=== PATIENT | female | born 1995 | race American Indian/Alaskan Native ===

== ENCOUNTER 2021-08-11 12:06 | Emergency (ER) | payer OTHER, SELFPAY ==
[2021-08-11 12:12] VITALS: BP 132/78; PULSE 102; RESP 15; TEMP 36.1; O2SAT 99; BMI 21.6
[2021-08-11 14:39] VITALS: BP 122/60; PULSE 96; O2SAT 97
--- NOTE | 2021-08-11 14:43 | DI.RAD.S_ITS ---
PROCEDURE: XR HIP W PEL IF DONE LT 2V INDICATIONS: hip pain TECHNIQUE: AP pelvis with lateral view(s) of the left hip(s). COMPARISON: None. FINDINGS: Bones: No fractures or dislocations. Pelvic ring appears intact. No suspicious bony lesions. Soft tissues: The visualized bowel gas pattern is normal. No suspicious soft tissue calcifications. An IUD is projected over the mid pelvis. IMPRESSION: No acute radiographic findings. Dictated by: Kasie Tay M.D. on 08/11/2021 at 15:16 Approved by: Kasie Tay M.D. on 08/11/2021 at 15:17
--- NOTE | 2021-08-11 14:44 | DI.RAD.S_ITS ---
PROCEDURE: XR LUMBAR SPINE 2-3V INDICATIONS: back pain TECHNIQUE: 3 views of the lumbar spine were acquired. COMPARISON: None. FINDINGS: Bones: 5 [id number] vertebrae are present. There is normal bony alignment. No vertebral body compression fractures. No suspicious bony lesions. Soft tissues: Overlying bowel gas pattern is normal. No suspicious soft tissue calcifications. An IUD is projected over the mid pelvis. IMPRESSION: No radiographic abnormalities. Dictated by: Kasie Tay M.D. on 08/11/2021 at 15:15 Approved by: Kasie Tay M.D. on 08/11/2021 at 15:16
--- NOTE | 2021-08-11 14:44 | ED.BACK ---
HPI - Back Pain/Injury <Jean Marie Robledo PA-C - Last Filed: 08/11/21 15:37> General Chief Complaint: Back Pain/Injury Stated Complaint: LEFT SIDE SCIATICA GROIN PELVIC AREA PAIN Time Seen by Provider: 08/11/21 14:38 Source: patient History of Present Illness HPI Narrative: Patient is a 26-year-old female who presents to the ED complaining of low back pain with pain radiating down her left leg that started approximately 1 week ago. She is also reporting some left hip pain that radiates into her left groin that started to worsen over the last couple of days. She denies any recent trauma or previous history. She has a history of psoriatic arthritis of which she has received steroid treatment in the past. Related Data Previous Rx's Medication Instructions Recorded ibuprofen 800 mg tablet 800 mg PO Q8H PRN #21 tab 08/11/21 methocarbamol 750 mg tablet 750 mg PO Q8H #21 tab 08/11/21 methylprednisolone 4 mg tablets in See Rx Instructions .ROUTE 08/11/21 a dose pack (Medrol (Aj)) .COMPLEX #21 ea Allergies Allergy/AdvReac Type Severity Reaction Status Date / Time naproxen AdvReac Intermediate Gastrointestinal Verified 08/11/21 12:17 Upset Review of Systems <Jean Marie Robledo PA-C - Last Filed: 08/11/21 15:37> Review of Systems ROS Unobtainable: All systems reviewed & are unremarkable except as noted in HPI and below Constitutional Constitutional: Denies chills, Denies fatigue, Denies fever(s), Denies frequent falls, Denies lethargy and Denies weakness Eyes Eyes: Denies change in vision, Denies eye discharge, Denies irritation and Denies loss of vision ENT Ears, Nose, Mouth, and Throat: Denies change in voice, Denies dizziness, Denies neck pain, Denies sore throat and Denies throat swelling Cardiovascular Cardiovascular: Denies chest pain, Denies irregular heart rhythm, Denies lightheadedness, Denies palpitations, Denies dyspnea, Denies dyspnea on exertion and Denies orthopnea Respiratory Respiratory: Denies cough, Denies dyspnea, Denies dyspnea on exertion and Denies wheezing Gastrointestinal Gastrointestinal: Denies abdominal pain, Denies change in bowel habits, Denies diarrhea, Denies nausea and Denies vomiting Genitourinary Genitourinary: Denies hematuria, Denies flank pain, Denies urinary incontinence and Denies urinary urgency Musculoskeletal Musculoskeletal: Reports back pain, Reports arthralgias, Denies muscle weakness, Denies neck pain, Denies numbness and Denies tingling Integumentary/Breasts Skin/Breast: Denies pruritus, Denies erythema, Denies rash and Denies wounds Neurologic Neurologic: Denies behavioral changes, Denies confusion, Denies dizziness, Denies frequent falls, Denies loss of vision, Denies numbness, Denies tingling and Denies weakness Psychiatric Psychiatric: Denies anxiety, Denies behavioral changes, Denies confusion, Denies depression, Denies homicidal ideation and Denies suicidal ideation Endocrine Endocrine: Denies fatigue, Denies flushing and Denies palpitations Hematologic/Lymphatic Hematologic/Lymphatic: Denies easy bruising Allergic/Immunologic Allergic/Immunologic: Denies urticaria, Denies throat swelling and Denies wheezing Patient History <Jean Marie Robledo PA-C - Last Filed: 08/11/21 15:37> Social History Smoking Status: Never smoker Smoking Status: Never smoker alcohol intake frequency: 0-2 drinks per day Substance Use Type: marijuana Exam <Jean Marie Robledo PA-C - Last Filed: 08/11/21 15:37> Initial Vital Signs Initial Vital Signs: Vital Signs Temperature 97.0 F L 08/11/21 12:12 Pulse Rate 102 H 08/11/21 12:12 Respiratory Rate 15 08/11/21 12:12 Blood Pressure 132/78 08/11/21 12:12 Pulse Oximetry 99 08/11/21 12:12 Const General: cooperative, healthy appearing and in distress Back/Spine/Pelvis Back: normal to inspection Thoracic/Lumbar Spine: thoracic and lumbar spine normal to inspection and straight leg raise negative bilaterally Extrem Left lower extremity: hip/thigh Details: abnormal ROM Details: pain with passive ROM Details: with internal rotation and with external rotation <Marcela Hurt DO - Last Filed: 08/12/21 10:16> Initial Vital Signs Initial Vital Signs: Vital Signs Temperature 97.0 F L 08/11/21 12:12 Pulse Rate 102 H 08/11/21 12:12 Respiratory Rate 15 08/11/21 12:12 Blood Pressure 132/78 08/11/21 12:12 Pulse Oximetry 99 08/11/21 12:12 Course <Jean Marie Robledo PA-C - Last Filed: 08/11/21 15:37> Orders Ordered: Discontinued Medications Dexamethasone (Dexamethasone 4 Mg/Ml Vial) 4 mg INJ INTRA-OP ONE Stop: 08/11/21 15:50 Last Admin: 08/11/21 15:57 Dose: Not Given Documented by: RAVEN Dexamethasone (Dexamethasone 4 Mg/Ml Vial) 4 mg IM NOW ONE Stop: 08/11/21 15:56 Last Admin: 08/11/21 16:03 Dose: 4 mg Documented by: RAVEN Vital Signs Vital signs: Vital Signs - 8 hr 08/11/21 12:12 08/11/21 14:39 Temperature 97.0 F L Pulse Rate 102 H 96 H Respiratory Rate 15 Blood Pressure 132/78 122/60 Pulse Oximetry 99 97 <Marcela Hurt DO - Last Filed: 08/12/21 10:16> Orders Ordered: Discontinued Medications Dexamethasone (Dexamethasone 4 Mg/Ml Vial) 4 mg INJ INTRA-OP ONE Stop: 08/11/21 15:50 Last Admin: 08/11/21 15:57 Dose: Not Given Documented by: RAVEN Dexamethasone (Dexamethasone 4 Mg/Ml Vial) 4 mg IM NOW ONE Stop: 08/11/21 15:56 Last Admin: 08/11/21 16:03 Dose: 4 mg Documented by: RAVEN Vital Signs Vital signs: Vital Signs - 8 hr 08/11/21 12:12 08/11/21 14:39 Temperature 97.0 F L Pulse Rate 102 H 96 H Respiratory Rate 15 Blood Pressure 132/78 122/60 Pulse Oximetry 99 97 MDM - Back Pain/Injury <Jean Marie Robledo PA-C - Last Filed: 08/11/21 15:37> Differential Diagnosis Differential diagnosis: Likely sciatica and strain of lumbar region Lab Data Labs: Lab Results 08/11/21 Range/Units 16:02 Urine RBC 1-5/hpf (0-5/HPF) Urine WBC 1-5/hpf (0-5/HPF) Ur Squamous Epith Cells 5-10 /hpf H (0-5/HPF) Amorphous Sediment 1+ Urine Bacteria Occasional (0-1) (None) Urine Mucus 1+ H (Negative) Ur Culture Indicated? Specimen cultured Point of Care Testing Test Results Negative Urine Dip Bedside Urine Glucose Negative Bedside Urine Bilirubin - Negative Bedside Urine Ketone - Negative Urine Specific [place] 1.015 Bedside Urine Occult Blood +++ Bedside Urine pH 6.0 Bedside Urine Protein +/- 15 Bedside Urine Urobilinogen - Negative Bedside Urine Nitrite - Negative Bedside Urine Leukocytes - Negative Esterase Imaging Data Lumbar X-Ray: Radiologist's Impression: PROCEDURE:? XR LUMBAR SPINE 2-3V ? INDICATIONS:? back pain ? TECHNIQUE:? 3 views of the lumbar spine were acquired.? ? COMPARISON:? None. ? FINDINGS:? ? Bones:? 5 [id number] vertebrae are present.? There is normal bony alignment.? No vertebral body compression fractures.? No suspicious bony lesions.? ? Soft tissues:? Overlying bowel gas pattern is normal.? No suspicious soft tissue calcifications.? An IUD is projected over the mid pelvis. ? ? IMPRESSION:? No radiographic abnormalities. ? ? Dictated by: Kasie Tay M.D. on 08/11/2021 at 15:15 ? ? Approved by: Kasie Tay M.D. on 08/11/2021 at 15:16 Hip X-Ray: Radiologist's Impression: PROCEDURE:? XR HIP W PEL IF DONE LT 2V ? INDICATIONS:? hip pain ? TECHNIQUE:? AP pelvis with lateral view(s) of the left hip(s).? ? COMPARISON:? None. ? FINDINGS:? ? Bones:? No fractures or dislocations.? Pelvic ring appears intact.? No suspicious bony lesions.? ? Soft tissues:? The visualized bowel gas pattern is normal.? No suspicious soft tissue calcifications.? An IUD is projected over the mid pelvis. ? ? IMPRESSION:? No acute radiographic findings. ? Dictated by: Kasie Tay M.D. on 08/11/2021 at 15:16 ? ? Approved by: Kasie Tay M.D. on 08/11/2021 at 15:17?? [facility] Narrative Medical decision making narrative: Patient was evaluated today for low back pain with pain radiating down the left leg and into the left hip. X-rays of the lower back and left hip were done did not show any evidence of any abnormalities. I spoke with the patient about prescriptions for muscle relaxers anti-inflammatories and steroids. She was agreeable with the treatment plan prescriptions will be sent to her pharmacy and patient will be discharged home. If the pain continues she should follow up with a back specialist for further evaluation. <Marcela Hurt DO - Last Filed: 08/12/21 10:16> Lab Data Labs: Lab Results 08/11/21 Range/Units 16:02 Urine RBC 1-5/hpf (0-5/HPF) Urine WBC 1-5/hpf (0-5/HPF) Ur Squamous Epith Cells 5-10 /hpf H (0-5/HPF) Amorphous Sediment 1+ Urine Bacteria Occasional (0-1) (None) Urine Mucus 1+ H (Negative) Ur Culture Indicated? Specimen cultured Point of Care Testing Test Results Negative Urine Dip Bedside Urine Glucose Negative Bedside Urine Bilirubin - Negative Bedside Urine Ketone - Negative Urine Specific [place] 1.015 Bedside Urine Occult Blood +++ Bedside Urine pH 6.0 Bedside Urine Protein +/- 15 Bedside Urine Urobilinogen - Negative Bedside Urine Nitrite - Negative Bedside Urine Leukocytes - Negative Esterase Discharge Plan Departure Patient Disposition: Home Clinical Impression: Sciatica, Strain of lumbar region Instructions: DI for Back Pain With Sciatica Activity Restrictions/Additional Instructions: You should limit your activity for the next few days. No heavy lifting or frequent bending or stooping. The prescriptions for the anti-inflammatory the muscle relaxer and steroids were sent over to [facility]. It is my hope that the muscle relaxer will not cause you to feel sedated were you can continue to take that every 8 hours along side the ibuprofen. Take the steroid pack as directed and if no improvement in your symptoms over a week you should follow-up with your PCP or back specialist for further evaluation to include an MRI. Prescriptions: New ibuprofen 800 mg tablet 800 mg PO Q8H PRN (Reason: pain) Qty: 21 0RF methocarbamol 750 mg tablet 750 mg PO Q8H Qty: 21 0RF methylprednisolone [Medrol (Aj)] 4 mg tablets,dose pack See Rx Instructions .ROUTE .COMPLEX Qty: 21 0RF Rx Instructions: orally per package directions Stand Alone Forms: Work Release Note <Marcela Hurt DO - Last Filed: 08/12/21 10:16> Cosign ED Attending Cosignature Attestation: I was immediately available in the department for consultation. Documentation has been reviewed. I agree with assessment and plan.
[2021-08-11] MEDS: DEXAMETHASONE 4 MG/ML VIAL IM (16:03)
[2021-08-11 16:09] VITALS: BP 123/61; PULSE 98; RESP 16; O2SAT 99
[2021-08-11 16:17] LABS: RBC Urine 1-5/HPF (0-5/HPF); Squamous Epithelial Cell Urine 5-10 /HPF (0-5/HPF); WBC Urine 1-5/HPF (0-5/HPF)
[2021-08-11 16:18] LABS: Amorphous Sediment Urine 1+; Bacteria Urine Occasional (0-1); Culture Indicated Urine Specimen Cultured; Mucus Urine 1+ (Negative)
== END 2021-08-11 16:14 | disposition home or self-care (01) ==
PROVIDERS: Emergency Provider Physician Assistant
DX: M54.42 Lumbago with sciatica, left side (principal); S39.012A Strain of muscle, fascia and tendon of lower back, initial encounter; X58.XXXA Exposure to other specified factors, initial encounter
CPT/HCPCS: 72100; 73502; 81003; 81015; 81025; 87086; 96372; 99284; J1100

== ENCOUNTER → 2021-09-28 13:44 | Outpatient (CLI) | payer OTHER, SELFPAY ==
--- NOTE | 2021-09-28 13:45 | DI.MRI.S_ITS ---
PROCEDURE: MR LUMBAR SPINE WO CON INDICATIONS: lumbar radiculopathy TECHNIQUE: Noncontrast sagittal T1 spin echo and T2 fast echo, sagittal STIR, and T2 fast spin echo through the lumbar spine. In cases with scoliosis, additional coronal T2 fast spin echo may be performed. COMPARISON: [facility], CR, XR LUMBAR SPINE 2-3V, 08/11/2021, 14:35. FINDINGS: Image quality: Excellent. Alignment and Curvature: 5 lumbar type vertebral bodies are present by plain film. There is loss of normal lumbar lordosis. Alignment is otherwise normal. Bone Marrow: Marrow is of normal overall signal. No acute vertebral body compression fractures. Spinal Cord: Conus medullaris terminates at the L1-L2 disc space level. Visualized cord demonstrates normal signal and size. Paraspinous Soft Tissues: No paravertebral masses. T12-L1: Normal appearance. L1-L2: Normal appearance. L2-L3: Normal appearance. L3-L4: Normal appearance. L4-L5: Normal appearance. L5-S1: Normal appearance. IMPRESSION: 1. Loss of normal lumbar lordosis, suggestive of muscle spasm. 2. No significant canal, or foraminal stenosis. No neural impingement. Dictated by: Jada Martínez M.D. on 09/28/2021 at 14:38 Approved by: Jada Martínez M.D. on 09/28/2021 at 14:39
== END ==
PROVIDERS: Referring Provider Physical Medicine & Rehabilitation; Visit Provider Physical Medicine & Rehabilitation
DX: M54.17 Radiculopathy, lumbosacral region (principal)
CPT/HCPCS: 72148

== ENCOUNTER 2021-09-30 09:46 | Emergency (ER) | payer OTHER, SELFPAY ==
[2021-09-30] VITALS (11 sets, daily range): BP systolic 109–128; BP diastolic 59–75; PULSE 80–109; RESP 16–22; TEMP 36.7–36.8; O2SAT 92–100; BMI 18.9
[2021-09-30 10:21] LABS: COVID19 -Nasal RAPID Negative (Negative)
[2021-09-30 10:51] LABS: Hemoglobin 8.1 g/dL (12.0-16.0); White Blood Cell Count 7.1 X10^3/uL (4.5-11.0)
[2021-09-30 10:54] LABS: Hematocrit 25.2 % (36-46); Mean Corpuscular Hemoglobin 22.7 PG (26-34); Mean Corpuscular Volume 71.1 fL (80-100); Red Blood Cell Count 3.55 X10^6/uL (4.0-5.2); Red Cell Distribution Width 18.9 % (11.6-14.8)
[2021-09-30 10:56] LABS: Alanine Aminotransferase 19 IU/L (<35); Albumin 3.4 g/dL (3.5-5.0); Albumin Globulin Ratio 0.5 (1.0-2.8); Alkaline Phosphatase 109 U/L (38-126); Aspartate Aminotransferase 21 IU/L (14-36); BUN Creatinine Ratio 14.9 (6-22); Bilirubin Total 0.3 mg/dL (0.2-1.3); Blood Urea Nitrogen 7 mg/dL (7-17); Calcium 8.6 mg/dL (8.4-10.2); Carbon Dioxide 29 mmol/L (22-32); Chloride 102 mmol/L (98-107); Estimated Glomerular Filt Rate > 60 mL/min (>60); Globulin 6.4 g/dL (1.7-4.1); Glucose 118 mg/dL (70-100); HEMOLYSIS < 15 (0-50); Potassium 3.9 mmol/L (3.4-5.1); Sodium 138 mmol/L (137-145)
[2021-09-30 10:57] LABS: Add Manual Diff / Slide Review YES; Platelet Count 800 X10^3/uL (150-400); Total Protein 9.8 g/dL (6.3-8.2)
[2021-09-30 11:21] LABS: Neutrophils Absolute Manual 3834 /uL (3000-5900); Total Cells Counted 100
[2021-09-30 11:23] LABS: Anisocytosis 1+; Hypochromasia 1+; Microcytosis 1+; Platelet Estimate Increased on smear
[2021-09-30] MEDS: ONDANSETRON 4 MG/2 ML INJ IV (12:50)
[2021-09-30] MEDS: SODIUM CHLORIDE 0.9% 1,000 ML 1000 ML IV (12:50)
[2021-09-30 12:52] LABS: Lactate (Lactic Acid) 1.2 mmol/L (0.7-2.1)
[2021-09-30 12:56] LABS: Appearance Urine UA CLEAR; Bilirubin Urine UA NEGATIVE (NEGATIVE); Color Urine UA YELLOW; Glucose Urine UA NEGATIVE (Negative); Ketones Urine UA NEGATIVE (NEGATIVE); Leukocyte Esterase Urine UA 1+ (NEGATIVE); Nitrite Urine UA NEGATIVE (Negative); Occult Blood Urine UA 3+ (Negative); Protein Urine UA NEGATIVE (Negative); Urobilinogen Urine UA 0.2 E.U./dL (0.2)
[2021-09-30 12:57] LABS: pH Urine UA 6.5 (4.5-8.0)
[2021-09-30 13:00] LABS: Bacteria Urine None Seen; Culture Indicated Urine Specimen Cultured; RBC Urine 10-30/HPF (0-5/HPF); Squamous Epithelial Cell Urine 1-5 /HPF (0-5/HPF); WBC Urine 5-10/HPF (0-5/HPF)
[2021-09-30 13:08] LABS: Procalcitonin 0.14 ng/mL (<0.5)
--- NOTE | 2021-09-30 13:24 | ED_ITS ---
HPI - Sepsis <JACEK Pacheco - Last Filed: 09/30/21 17:05> General Chief Complaint: Weakness Mode of arrival: Wheelchair Source: patient Limitations: no limitations Evaluation Sepsis Screen: No Definite Risk Sepsis Infection Criteria Present: None Narrative: This is a 26-year-old female with a history of psoriatic arthritis and has pr esented to the emergency department and walk-in clinic for lumbar pain over the last 2 months which has not been getting much better after 2 courses of steroids, muscle relaxers, anti-inflammatories. Patient states that she used to take since he a an injectable medicine for her psoriatic arthritis once per month and has been off of this for a few months. She states that she is from [place], her executive chairman in [place] was the prescriber for this, she has not set up primary care yet [facility] she will [facility] going. She does not have a executive chairman yet. She states that yesterday at work her co-worker thought that she was pale and she felt lightheaded so she drank some water which she states made her feel better. She states that she has had ongoing low back pain with sciatica down her left side, she has been seen in the emergency department and at the walk-in clinic for this. She states she had an MRI 2 days ago for her lumbar. She is pending a primary care provider [facility], states she called today but they told her to go to the emergency department. Nausea vomiting, shortness of breath, fever or chills, no weakness. She states that she has had 2 courses of steroids this month which have improved her pain but now her pain is worse than it has ever been. She denies any incontinence. Review of Systems <JACEK Pacheco - Last Filed: 09/30/21 17:05> Review of Systems Narrative: General: Endorses chills, malaise, sweats, fatigue Head/Neck: denies headache, neck pain, dizziness Eyes: denies visual changes, eye pain Cardio: denies chest pain, palpitations, edema Respiratory: denies dyspnea, cough, orthopnea GI: denies abdominal pain, nausea, vomiting, or diarrhea : denies dysuria, hematuria, urinary retention, frequency or incontinence MSK: denies joint pain, muscle weakness, endorses low back pain which is significant, Skin: denies rash, itching, skin lesions or other Neuro: denies numbness, tingling Patient History <JACEK Pacheco - Last Filed: 09/30/21 17:05> Medical History Lumbago with sciatica Lumbosacral radiculopathy at L5 Social History Smoking Status: Never smoker Smoking Status: Never smoker alcohol intake frequency: 0-2 drinks per day Substance Use Type: marijuana Exam <JACEK Pacheco - Last Filed: 09/30/21 17:05> Narrative Exam Narrative: Independently reviewed vitals signs and nursing notes. General: cooperative, comfortable, in no acute distress, well developed and well groomed Head: atraumatic, symmetrical facial expressions Neck: supple, atraumatic, without lymphadenopathy. Eyes: pupils equal round and reactive, EOMI, conjunctiva normal Nose: nares patent, no rhinorrhea Mouth/Throat: moist mucus membranes Cardiovascular: regular rate and rhythm, no peripheral edema, warm extremities Respiratory: normal effort, able to speak in complete sentences, no audible wheezing, stridor, or rales. No retractions or tachypnea. GI: abdomen soft, nontender to palpation, nondistended, no masses, no exquisite tenderness with exam, without guarding or rebound. No CVA tenderness, Box Builder: Vaginal discharge is clear with small brown spots likely from menses, no thick white discharge, or lymphadenopathy. MSK: moves all extremities, ambulatory w/steady gait, neurovascularly intact, no weakness Skin: brisk capillary refill, no rash, no erythema Neuro: normal speech and cognition, A&O x3, normal tone Psych: mental status is grossly normal, congruent mood, normal affect, pleasant and cooperative Initial Vital Signs Initial Vital Signs: Vital Signs Temperature 98.0 F 09/30/21 09:55 Pulse Rate 109 H 09/30/21 09:55 Respiratory Rate 20 09/30/21 09:55 Blood Pressure 109/68 09/30/21 09:55 Pulse Oximetry 99 09/30/21 09:55 <Marcela Hurt DO - Last Filed: 10/01/21 07:56> Initial Vital Signs Initial Vital Signs: Vital Signs Temperature 98.0 F 09/30/21 09:55 Pulse Rate 109 H 09/30/21 09:55 Respiratory Rate 20 09/30/21 09:55 Blood Pressure 109/68 09/30/21 09:55 Pulse Oximetry 99 09/30/21 09:55 Course <JACEK Pacheco - Last Filed: 09/30/21 17:05> Orders Ordered: Discontinued Medications Cyclobenzaprine HCl (Cyclobenzaprine 10 Mg Tablet) 10 mg PO NOW ONE Stop: 09/30/21 14:24 Last Admin: 09/30/21 14:33 Dose: 10 mg Documented by: RAVEN Sodium Chloride (Normal Saline 0.9%) 1,000 mls @ 1,000 mls/hr IV BOLUS ONE Stop: 09/30/21 13:35 Last Infusion: 09/30/21 13:53 Dose: 0 mls/hr Documented by: Admin: 09/30/21 12:50 Dose: 1,000 mls/hr Documented by: RAYSHAWN Ketorolac Tromethamine (Ketorolac 30 Mg/Ml Vial) 15 mg IV NOW ONE Stop: 09/30/21 14:21 Last Admin: 09/30/21 14:33 Dose: 15 mg Documented by: RAVEN Ondansetron HCl (Ondansetron 4 Mg/2 Ml Inj) 4 mg IV NOW ONE Stop: 09/30/21 12:37 Last Admin: 09/30/21 12:50 Dose: 4 mg Documented by: RAYSHAWN Vital Signs Vital signs: Vital Signs - 8 hr 09/30/21 09:55 09/30/21 11:36 09/30/21 11:37 Temperature 98.0 F Pulse Rate 109 H 96 H 95 H Respiratory Rate 20 22 16 Blood Pressure 109/68 121/75 Pulse Oximetry 99 92 100 09/30/21 12:00 09/30/21 12:42 09/30/21 12:44 Temperature Pulse Rate 86 98 H 92 H Respiratory Rate 17 Blood Pressure 116/59 L 128/66 Pulse Oximetry 99 99 99 09/30/21 13:00 09/30/21 13:26 09/30/21 13:30 Temperature 98.3 F Pulse Rate 85 85 Respiratory Rate 21 22 Blood Pressure 123/59 L 128/68 Pulse Oximetry 98 100 09/30/21 14:00 09/30/21 14:30 Temperature Pulse Rate 80 80 Respiratory Rate 19 20 Blood Pressure 125/64 114/59 L Pulse Oximetry 100 99 <Marcela Hurt, DO - Last Filed: 10/01/21 07:56> Orders Ordered: Discontinued Medications Cyclobenzaprine HCl (Cyclobenzaprine 10 Mg Tablet) 10 mg PO NOW ONE Stop: 09/30/21 14:24 Last Admin: 09/30/21 14:33 Dose: 10 mg Documented by: RAVEN Sodium Chloride (Normal Saline 0.9%) 1,000 mls @ 1,000 mls/hr IV BOLUS ONE Stop: 09/30/21 13:35 Last Infusion: 09/30/21 13:53 Dose: 0 mls/hr Documented by: Admin: 09/30/21 12:50 Dose: 1,000 mls/hr Documented by: RAYSHAWN Ketorolac Tromethamine (Ketorolac 30 Mg/Ml Vial) 15 mg IV NOW ONE Stop: 09/30/21 14:21 Last Admin: 09/30/21 14:33 Dose: 15 mg Documented by: RAVEN Ondansetron HCl (Ondansetron 4 Mg/2 Ml Inj) 4 mg IV NOW ONE Stop: 09/30/21 12:37 Last Admin: 09/30/21 12:50 Dose: 4 mg Documented by: RAYSHAWN Vital Signs Vital signs: Vital Signs - 8 hr 09/30/21 09:55 09/30/21 11:36 09/30/21 11:37 Temperature 98.0 F Pulse Rate 109 H 96 H 95 H Respiratory Rate 20 22 16 Blood Pressure 109/68 121/75 Pulse Oximetry 99 92 100 09/30/21 12:00 09/30/21 12:42 09/30/21 12:44 Temperature Pulse Rate 86 98 H 92 H Respiratory Rate 17 Blood Pressure 116/59 L 128/66 Pulse Oximetry 99 99 99 09/30/21 13:00 09/30/21 13:26 09/30/21 13:30 Temperature 98.3 F Pulse Rate 85 85 Respiratory Rate 21 22 Blood Pressure 123/59 L 128/68 Pulse Oximetry 98 100 09/30/21 14:00 09/30/21 14:30 Temperature Pulse Rate 80 80 Respiratory Rate 19 20 Blood Pressure 125/64 114/59 L Pulse Oximetry 100 99 Sepsis Guideline Criteria <JACEK Pacheco - Last Filed: 09/30/21 17:05> Level 1 - Infection Sepsis Infection Criteria Present: None Treatment Initiated Antibiotics:: IV antimicrobials will be initiated as soon as possible after recognition of sepsis state and within one hour for both sepsis and septic shock. MDM - Sepsis <JACEK Pacheco - Last Filed: 09/30/21 17:05> Lab Data Result diagrams: 09/30/21 10:34 09/30/21 10:34 Labs: Lab Results 09/30/21 09/30/21 09/30/21 Range/Units 09:56 10:34 10:34 WBC 7.1 (4.5-11.0) X10^3/uL RBC 3.55 L (4.0-5.2) X10^6/uL Hgb 8.1 L (12.0-16.0) g/dL Hct 25.2 L (36-46) % MCV 71.1 L (80-100) fL MCH 22.7 L (26-34) PG MCHC 32.0 (30-36) % RDW 18.9 H (11.6-14.8) % Plt Count 800 H (150-400) X10^3/uL Neut % (Auto) Not Reportable Lymph % (Auto) Not Reportable [place] % (Auto) Not Reportable Eos % (Auto) Not Reportable Baso % (Auto) Not Reportable Lymph # (Auto) Not Reportable [place] # (Auto) Not Reportable Baso # (Auto) Not Reportable Total Counted 100 Seg Neutrophils % 54.0 (38-70) % Lymphocytes % (Manual) 35.0 (25-45) % Atypical Lymphs % 3.0 H ( - 0) % Monocytes % (Manual) 7.0 (2-11) % Eosinophils % (Manual) 1.0 L (2-4) % Neutrophils # (Manual) 3834 (3757-2064) /uL Platelet Estimate Increased on smear RBC Morphology See below Hypochromasia 1+ H Anisocytosis 1+ H Microcytosis 1+ H Sodium 138 (137-145) mmol/L Potassium 3.9 (3.4-5.1) mmol/L Chloride 102 (98-107) mmol/L Carbon Dioxide 29 (22-32) mmol/L BUN 7 (7-17) mg/dL Creatinine 0.47 L (0.52-1.04) mg/dL Estimated GFR > 60 (>60) mL/min BUN/Creatinine Ratio 14.9 (6-22) Glucose 118 H (70-100) mg/dL Lactate (0.7-2.1) mmol/L Calcium 8.6 (8.4-10.2) mg/dL Total Bilirubin 0.3 (0.2-1.3) mg/dL AST 21 (14-36) IU/L ALT 19 (<35) IU/L Alkaline Phosphatase 109 (38-126) U/L Total Protein 9.8 H* (6.3-8.2) g/dL Albumin 3.4 L (3.5-5.0) g/dL Globulin 6.4 H (1.7-4.1) g/dL Albumin/Globulin Ratio 0.5 L (1.0-2.8) Procalcitonin (<0.5) ng/mL Urine Color Urine Appearance Urine pH (4.5-8.0) Ur Specific [place] (1.000-1.035) Urine Protein (Negative) Urine Glucose (UA) (Negative) g/dL Urine Ketones (NEGATIVE) Urine Occult Blood (Negative) Urine Nitrate (Negative) Urine Bilirubin (NEGATIVE) Urine Urobilinogen (0.2) E.U./dL Ur Leukocyte Esterase (NEGATIVE) Urine RBC (0-5/HPF) Urine WBC (0-5/HPF) Ur Squamous Epith Cells (0-5/HPF) Urine Bacteria (None) Ur Culture Indicated? Ur Chlamydia DNA (PCR) SARS-CoV-2 (PCR) Negative (Negative) N gonorrhoeae DNA (PCR) 09/30/21 09/30/21 09/30/21 Range/Units 10:39 10:39 12:40 WBC (4.5-11.0) X10^3/uL RBC (4.0-5.2) X10^6/uL Hgb (12.0-16.0) g/dL Hct (36-46) % MCV (80-100) fL MCH (26-34) PG MCHC (30-36) % RDW (11.6-14.8) % Plt Count (150-400) X10^3/uL Neut % (Auto) Lymph % (Auto) [place] % (Auto) Eos % (Auto) Baso % (Auto) Lymph # (Auto) [place] # (Auto) Baso # (Auto) Total Counted Seg Neutrophils % (38-70) % Lymphocytes % (Manual) (25-45) % Atypical Lymphs % ( - 0) % Monocytes % (Manual) (2-11) % Eosinophils % (Manual) (2-4) % Neutrophils # (Manual) (0883-3006) /uL Platelet Estimate RBC Morphology Hypochromasia Anisocytosis Microcytosis Sodium (137-145) mmol/L Potassium (3.4-5.1) mmol/L Chloride (98-107) mmol/L Carbon Dioxide (22-32) mmol/L BUN (7-17) mg/dL Creatinine (0.52-1.04) mg/dL Estimated GFR (>60) mL/min BUN/Creatinine Ratio (6-22) Glucose (70-100) mg/dL Lactate 1.2 (0.7-2.1) mmol/L Calcium (8.4-10.2) mg/dL Total Bilirubin (0.2-1.3) mg/dL AST (14-36) IU/L ALT (<35) IU/L Alkaline Phosphatase (38-126) U/L Total Protein (6.3-8.2) g/dL Albumin (3.5-5.0) g/dL Globulin (1.7-4.1) g/dL Albumin/Globulin Ratio (1.0-2.8) Procalcitonin 0.14 (<0.5) ng/mL Urine Color Yellow Urine Appearance Clear Urine pH 6.5 (4.5-8.0) Ur Specific [place] 1.010 (1.000-1.035) Urine Protein Negative (Negative) Urine Glucose (UA) Negative (Negative) g/dL Urine Ketones Negative (NEGATIVE) Urine Occult Blood 3+ H (Negative) Urine Nitrate Negative (Negative) Urine Bilirubin Negative (NEGATIVE) Urine Urobilinogen 0.2 (0.2) E.U./dL Ur Leukocyte Esterase 1+ H (NEGATIVE) Urine RBC 10-30/hpf H (0-5/HPF) Urine WBC 5-10/hpf H (0-5/HPF) Ur Squamous Epith Cells 1-5 /hpf (0-5/HPF) Urine Bacteria None seen (None) Ur Culture Indicated? Specimen cultured Ur Chlamydia DNA (PCR) SARS-CoV-2 (PCR) (Negative) N gonorrhoeae DNA (PCR) 09/30/21 Range/Units 12:40 WBC (4.5-11.0) X10^3/uL RBC (4.0-5.2) X10^6/uL Hgb (12.0-16.0) g/dL Hct (36-46) % MCV (80-100) fL MCH (26-34) PG MCHC (30-36) % RDW (11.6-14.8) % Plt Count (150-400) X10^3/uL Neut % (Auto) Lymph % (Auto) [place] % (Auto) Eos % (Auto) Baso % (Auto) Lymph # (Auto) [place] # (Auto) Baso # (Auto) Total Counted Seg Neutrophils % (38-70) % Lymphocytes % (Manual) (25-45) % Atypical Lymphs % ( - 0) % Monocytes % (Manual) (2-11) % Eosinophils % (Manual) (2-4) % Neutrophils # (Manual) ([id number]) /uL Platelet Estimate RBC Morphology Hypochromasia Anisocytosis Microcytosis Sodium (137-145) mmol/L Potassium (3.4-5.1) mmol/L Chloride (98-107) mmol/L Carbon Dioxide (22-32) mmol/L BUN (7-17) mg/dL Creatinine (0.52-1.04) mg/dL Estimated GFR (>60) mL/min BUN/Creatinine Ratio (6-22) Glucose (70-100) mg/dL Lactate (0.7-2.1) mmol/L Calcium (8.4-10.2) mg/dL Total Bilirubin (0.2-1.3) mg/dL AST (14-36) IU/L ALT (<35) IU/L Alkaline Phosphatase (38-126) U/L Total Protein (6.3-8.2) g/dL Albumin (3.5-5.0) g/dL Globulin (1.7-4.1) g/dL Albumin/Globulin Ratio (1.0-2.8) Procalcitonin (<0.5) ng/mL Urine Color Urine Appearance Urine pH (4.5-8.0) Ur Specific [place] (1.000-1.035) Urine Protein (Negative) Urine Glucose (UA) (Negative) g/dL Urine Ketones (NEGATIVE) Urine Occult Blood (Negative) Urine Nitrate (Negative) Urine Bilirubin (NEGATIVE) Urine Urobilinogen (0.2) E.U./dL Ur Leukocyte Esterase (NEGATIVE) Urine RBC (0-5/HPF) Urine WBC (0-5/HPF) Ur Squamous Epith Cells (0-5/HPF) Urine Bacteria (None) Ur Culture Indicated? Ur Chlamydia DNA (PCR) Not detected SARS-CoV-2 (PCR) (Negative) N gonorrhoeae DNA (PCR) Not detected Point of Care Testing Glucose POC 136 Imaging Data Lumbar MRI: Radiologist's Impression: PROCEDURE:? MR LUMBAR SPINE WO CON ? INDICATIONS:? lumbar radiculopathy ? TECHNIQUE:? Noncontrast sagittal T1 spin echo and T2 fast echo, sagittal STIR, and T2 fast spin echo through the lumbar spine.? In cases with scoliosis, additional coronal T2 fast spin echo may be performed.? ? COMPARISON:? [facility], CR, XR LUMBAR SPINE 2-3V, 08/11/2021, 14:35. ? FINDINGS:? Image quality:? Excellent.? ? Alignment and Curvature:? 5 lumbar type vertebral bodies are present by plain film.? There is loss of normal lumbar lordosis.? Alignment is otherwise normal. ? Bone Marrow:? Marrow is of normal overall signal.? No acute vertebral body compression fractures.? ? Spinal Cord:? Conus medullaris terminates at the L1-L2 disc space level.? Visualized cord demonstrates normal signal and size.? ? Paraspinous Soft Tissues:? No paravertebral masses.? ? T12-L1:? Normal appearance.? ? L1-L2:? Normal appearance.? ? L2-L3:? Normal appearance.? ? L3-L4:? Normal appearance.? ? L4-L5:? Normal appearance.? ? L5-S1:? Normal appearance.? ? ? IMPRESSION:? 1. Loss of normal lumbar lordosis, suggestive of muscle spasm. 2. No significant canal, or foraminal stenosis.? No neural impingement. ? ? Dictated by: Jada Martínez M.D. on 09/28/2021 at 14:38 ? ? Approved by: Jada Martínez M.D. on 09/28/2021 at 14:39 ? MDM Narrative Medical decision making narrative: This is a 26-year-old female with history of psoriatic arthritis who presents to the emergency department for ongoing low back pain with sciatica on the left, complains of menstrual cramping although she has the IUD that was implanted in 2019 and has not had a menses but has started spotting recently. She denies any chills, fever, abdominal pain or vomiting. She was previously on Cimzia for her psoriatic arthritis but she moved here from [place] a few months ago and has not had this medication for last couple of months. She has completed 2 or 3 steroid bursts for her back pain which have been helpful, has been using muscle relaxers which have also been helpful, does not use naproxen but takes ibuprofen, uses lidocaine patches, and states that tramadol made her feel weird she did not like it. Her MRI from 2 days ago of her lumbar spine shows lordosis suggestive of muscle spasm, no significant canal or foraminal stenosis, no neural impingement. This is most likely a flare of her psoriatic arthritis, she does not currently have a executive chairman. She is encouraged to go back to the [facility] clinic to establish care with primary care there and ask for a referral to Rheumatology for her medication. Patient has an elevated platelet count of 800, no leukocytosis, hemoglobin of 8.1 and hematocrit of 25.2 without priors to compare to, no signs of bleeding. This is most likely anemia of chronic disease and chronic immunosuppression. UA shows leukocyte esterase, red blood cells, white blood cells, pending culture. Patient was given a prescription of Flexeril for muscle spasms, cephalexin for UTI, diclofenac gel and encouraged to stay hydrated, follow up with her primary care provider for a referral to Rheumatology. Multiple etiologies of back pain considered including; Epidural abscess, cauda equina, mass occupying lesion, lumbar fracture, intra-abdominal pathology chronic neuropathic pain and other considered <Marcela Hurt, DO - Last Filed: 10/01/21 07:56> Lab Data Labs: Lab Results 09/30/21 09/30/21 09/30/21 Range/Units 09:56 10:34 10:34 WBC 7.1 (4.5-11.0) X10^3/uL RBC 3.55 L (4.0-5.2) X10^6/uL Hgb 8.1 L (12.0-16.0) g/dL Hct 25.2 L (36-46) % MCV 71.1 L (80-100) fL MCH 22.7 L (26-34) PG MCHC 32.0 (30-36) % RDW 18.9 H (11.6-14.8) % Plt Count 800 H (150-400) X10^3/uL Neut % (Auto) Not Reportable Lymph % (Auto) Not Reportable [place] % (Auto) Not Reportable Eos % (Auto) Not Reportable Baso % (Auto) Not Reportable Lymph # (Auto) Not Reportable [place] # (Auto) Not Reportable Baso # (Auto) Not Reportable Total Counted 100 Seg Neutrophils % 54.0 (38-70) % Lymphocytes % (Manual) 35.0 (25-45) % Atypical Lymphs % 3.0 H ( - 0) % Monocytes % (Manual) 7.0 (2-11) % Eosinophils % (Manual) 1.0 L (2-4) % Neutrophils # (Manual) 3834 (4716-7519) /uL Platelet Estimate Increased on smear RBC Morphology See below Hypochromasia 1+ H Anisocytosis 1+ H Microcytosis 1+ H Sodium 138 (137-145) mmol/L Potassium 3.9 (3.4-5.1) mmol/L Chloride 102 (98-107) mmol/L Carbon Dioxide 29 (22-32) mmol/L BUN 7 (7-17) mg/dL Creatinine 0.47 L (0.52-1.04) mg/dL Estimated GFR > 60 (>60) mL/min BUN/Creatinine Ratio 14.9 (6-22) Glucose 118 H (70-100) mg/dL Lactate (0.7-2.1) mmol/L Calcium 8.6 (8.4-10.2) mg/dL Total Bilirubin 0.3 (0.2-1.3) mg/dL AST 21 (14-36) IU/L ALT 19 (<35) IU/L Alkaline Phosphatase 109 (38-126) U/L Total Protein 9.8 H* (6.3-8.2) g/dL Albumin 3.4 L (3.5-5.0) g/dL Globulin 6.4 H (1.7-4.1) g/dL Albumin/Globulin Ratio 0.5 L (1.0-2.8) Procalcitonin (<0.5) ng/mL Urine Color Urine Appearance Urine pH (4.5-8.0) Ur Specific [place] (1.000-1.035) Urine Protein (Negative) Urine Glucose (UA) (Negative) g/dL Urine Ketones (NEGATIVE) Urine Occult Blood (Negative) Urine Nitrate (Negative) Urine Bilirubin (NEGATIVE) Urine Urobilinogen (0.2) E.U./dL Ur Leukocyte Esterase (NEGATIVE) Urine RBC (0-5/HPF) Urine WBC (0-5/HPF) Ur Squamous Epith Cells (0-5/HPF) Urine Bacteria (None) Ur Culture Indicated? Ur Chlamydia DNA (PCR) SARS-CoV-2 (PCR) Negative (Negative) N gonorrhoeae DNA (PCR) 09/30/21 09/30/21 09/30/21 Range/Units 10:39 10:39 12:40 WBC (4.5-11.0) X10^3/uL RBC (4.0-5.2) X10^6/uL Hgb (12.0-16.0) g/dL Hct (36-46) % MCV (80-100) fL MCH (26-34) PG MCHC (30-36) % RDW (11.6-14.8) % Plt Count (150-400) X10^3/uL Neut % (Auto) Lymph % (Auto) [place] % (Auto) Eos % (Auto) Baso % (Auto) Lymph # (Auto) [place] # (Auto) Baso # (Auto) Total Counted Seg Neutrophils % (38-70) % Lymphocytes % (Manual) (25-45) % Atypical Lymphs % ( - 0) % Monocytes % (Manual) (2-11) % Eosinophils % (Manual) (2-4) % Neutrophils # (Manual) (9340-1641) /uL Platelet Estimate RBC Morphology Hypochromasia Anisocytosis Microcytosis Sodium (137-145) mmol/L Potassium (3.4-5.1) mmol/L Chloride (98-107) mmol/L Carbon Dioxide (22-32) mmol/L BUN (7-17) mg/dL Creatinine (0.52-1.04) mg/dL Estimated GFR (>60) mL/min BUN/Creatinine Ratio (6-22) Glucose (70-100) mg/dL Lactate 1.2 (0.7-2.1) mmol/L Calcium (8.4-10.2) mg/dL Total Bilirubin (0.2-1.3) mg/dL AST (14-36) IU/L ALT (<35) IU/L Alkaline Phosphatase (38-126) U/L Total Protein (6.3-8.2) g/dL Albumin (3.5-5.0) g/dL Globulin (1.7-4.1) g/dL Albumin/Globulin Ratio (1.0-2.8) Procalcitonin 0.14 (<0.5) ng/mL Urine Color Yellow Urine Appearance Clear Urine pH 6.5 (4.5-8.0) Ur Specific [place] 1.010 (1.000-1.035) Urine Protein Negative (Negative) Urine Glucose (UA) Negative (Negative) g/dL Urine Ketones Negative (NEGATIVE) Urine Occult Blood 3+ H (Negative) Urine Nitrate Negative (Negative) Urine Bilirubin Negative (NEGATIVE) Urine Urobilinogen 0.2 (0.2) E.U./dL Ur Leukocyte Esterase 1+ H (NEGATIVE) Urine RBC 10-30/hpf H (0-5/HPF) Urine WBC 5-10/hpf H (0-5/HPF) Ur Squamous Epith Cells 1-5 /hpf (0-5/HPF) Urine Bacteria None seen (None) Ur Culture Indicated? Specimen cultured Ur Chlamydia DNA (PCR) SARS-CoV-2 (PCR) (Negative) N gonorrhoeae DNA (PCR) 09/30/21 Range/Units 12:40 WBC (4.5-11.0) X10^3/uL RBC (4.0-5.2) X10^6/uL Hgb (12.0-16.0) g/dL Hct (36-46) % MCV (80-100) fL MCH (26-34) PG MCHC (30-36) % RDW (11.6-14.8) % Plt Count (150-400) X10^3/uL Neut % (Auto) Lymph % (Auto) [place] % (Auto) Eos % (Auto) Baso % (Auto) Lymph # (Auto) [place] # (Auto) Baso # (Auto) Total Counted Seg Neutrophils % (38-70) % Lymphocytes % (Manual) (25-45) % Atypical Lymphs % ( - 0) % Monocytes % (Manual) (2-11) % Eosinophils % (Manual) (2-4) % Neutrophils # (Manual) ([id number]) /uL Platelet Estimate RBC Morphology Hypochromasia Anisocytosis Microcytosis Sodium (137-145) mmol/L Potassium (3.4-5.1) mmol/L Chloride (98-107) mmol/L Carbon Dioxide (22-32) mmol/L BUN (7-17) mg/dL Creatinine (0.52-1.04) mg/dL Estimated GFR (>60) mL/min BUN/Creatinine Ratio (6-22) Glucose (70-100) mg/dL Lactate (0.7-2.1) mmol/L Calcium (8.4-10.2) mg/dL Total Bilirubin (0.2-1.3) mg/dL AST (14-36) IU/L ALT (<35) IU/L Alkaline Phosphatase (38-126) U/L Total Protein (6.3-8.2) g/dL Albumin (3.5-5.0) g/dL Globulin (1.7-4.1) g/dL Albumin/Globulin Ratio (1.0-2.8) Procalcitonin (<0.5) ng/mL Urine Color Urine Appearance Urine pH (4.5-8.0) Ur Specific [place] (1.000-1.035) Urine Protein (Negative) Urine Glucose (UA) (Negative) g/dL Urine Ketones (NEGATIVE) Urine Occult Blood (Negative) Urine Nitrate (Negative) Urine Bilirubin (NEGATIVE) Urine Urobilinogen (0.2) E.U./dL Ur Leukocyte Esterase (NEGATIVE) Urine RBC (0-5/HPF) Urine WBC (0-5/HPF) Ur Squamous Epith Cells (0-5/HPF) Urine Bacteria (None) Ur Culture Indicated? Ur Chlamydia DNA (PCR) Not detected SARS-CoV-2 (PCR) (Negative) N gonorrhoeae DNA (PCR) Not detected Point of Care Testing Glucose POC 136 Discharge Plan Departure Patient Disposition: Home Clinical Impression: Psoriatic arthritis Lumbago with sciatica Qualifiers: Chronicity: acute Back pain laterality: left Sciatica laterality: sciatica of left side Qualified Code(s): M54.42 - Lumbago with sciatica, left side Instructions: Sciatica Activity Restrictions/Additional Instructions: *You have been diagnosed with back pain with sciatica, groin and pelvis pain with unknown etiology. Your workup today has ribs a low blood count, likely due to your steroids you been on this month and your history of psoriatic arthritis. No infectious sources were found, your kidney function is great with a creatinine 0.47 you did not have any significant signs of dehydration on your lab work, your urine does not infection, your vaginal secretions did not have any abnormal finding, and your MRI from 2 days ago shows loss of normal lumbar curvature suggesting muscle spasm, it did not have any significant canal stenosis or nerve impingement. No mesh clinic for an appointment with a primary care provider as soon as possible. Please request follow-up from the emergency department and request referral to Rheumatology and dosing of your psoriatic arthritis medicine. I have called and muscle relaxers, Voltaren topical gel, and ibuprofen to your pharmacy. Thank you for trusting us with your care, please follow-up with your primary care provider as directed. If you develop weakness, incontinence, or any new abnormal changes like a high fever and vomiting, please return to the emergency department. I hope you feel better soon. *What to do: *Please continue to take your regular medications as directed. [x ] New medication prescriptions sent to your pharmacy: [ [facility]] [ ] New medication written as a paper prescription [ ] No new medications given *Please follow up with your primary care provider in 2-3 days, call for an appointment. Let them know you were seen in the Emergency Department and that we asked that you be seen for follow-up. We will electronically transmit a record o f today's note if your PCP is in our system *If you do not have a primary care provider please contact [phone] to establish care with one of the [facility] primary care providers. *Return to Emergency Department if you should have any new, worsening or concerning symptoms, such as [fever greater than 101F, chills, worsening pain, persistent vomiting or other bothersome symptoms] Prescriptions: New cyclobenzaprine 7.5 mg tablet 7.5 mg PO BEDTIME PRN (Reason: muscle spasm) Qty: 60 0RF diclofenac sodium [Voltaren Arthritis Pain] 1 % gel 2 g topical QID PRN (Reason: pain) Qty: 100 0RF Rx Instructions: apply to single elbow, wrist or hand; for hand includes palm/fingers/back of hand ibuprofen 800 mg tablet 800 mg PO Q8H PRN (Reason: pain) Qty: 60 0RF cephalexin 500 mg capsule 500 mg PO BID 5 Days Qty: 10 0RF No Action cyclobenzaprine 10 mg tablet 10 mg PO BEDTIME 0RF tramadol 50 mg tablet 50 mg PO BID PRN (Reason: pain) Qty: 14 0RF lidocaine [Lidoderm] 5 % adhesive patch,medicated 1 patch topical DAILY PRN (Reason: pain) Qty: 15 0RF Rx Instructions: leave on most painful area for up to 12 hrs ibuprofen 800 mg tablet 800 mg PO Q8H PRN (Reason: pain) Qty: 30 0RF methylprednisolone [Medrol (Aj)] 4 mg tablets,dose pack See Rx Instructions PO PER PKG DIR Qty: 21 0RF Rx Instructions: PO PER PKG DIR gabapentin 600 mg tablet extended release 24 hr 600 mg PO QPM PRN (Reason: sciatica) Qty: 14 0RF ibuprofen 800 mg tablet 800 mg PO Q8H PRN (Reason: pain) Qty: 21 0RF Stand Alone Forms: Work Release Note <Marcela Hurt, - Last Filed: 10/01/21 07:56> Cosign ED Attending Cosbrendaature Attestation: I was immediately available in the department for consultation. Documentation has been reviewed. I agree with assessment and plan.
[2021-09-30] MEDS: KETOROLAC 30 MG/ML VIAL 15 MG IV (14:33)
[2021-09-30] MEDS: CYCLOBENZAPRINE 10 MG TABLET PO (14:33)
[2021-09-30 14:44] LABS: Urine Chlamydia NOT DETECTED; Urine N gonorrhoeae NOT DETECTED
== END 2021-09-30 14:50 | disposition home or self-care (01) ==
PROVIDERS: Emergency Medicine; Emergency Provider Nurse Practitioner Critical Care Medicine
DX: M54.42 Lumbago with sciatica, left side (principal); L40.50 Arthropathic psoriasis, unspecified; Z20.822 Contact with and (suspected) exposure to COVID-19
CPT/HCPCS: 36415; 80053; 81001; 82962; 83605; 84145; 85007; 85025; 87040; 87086; 87210; 87491; 87591; 87635; 96374; 96375; 99284; C9803; J1885; J2405

== ENCOUNTER 2023-06-28 12:38 | Emergency (ER) | payer MEDICAID, SELFPAY ==
[2023-06-28] VITALS (21 sets, daily range): BP systolic 122–139; BP diastolic 58–99; PULSE 57–90; RESP 17–33; TEMP 36.6; O2SAT 96–100; BMI 25.8
[2023-06-28 13:13] LABS: Add Manual Diff / Slide Review NO; Basophils Absolute Auto 200 /uL (0-100); Basophils Percent Auto 1.3 % (0-2); Eosinophils Absolute Auto 200 /uL (0-450); Eosinophils Percent Auto 1.4 % (2-4); Hematocrit 25.7 % (36-46); Hemoglobin 7.8 g/dL (12.0-16.0); Lymphocytes Absolute Auto 3100 /uL (1100-4500); Lymphocytes Percent Auto 23.8 % (25-40); Mean Corpuscular HGB Conc 30.3 % (30-36); Mean Corpuscular Hemoglobin 20.4 PG (26-34); Mean Corpuscular Volume 67.2 fL (80-100); Monocytes Absolute Auto 1100 /uL (0-900); Monocytes Percent Auto 8.3 % (3-14); Neutrophils Absolute Auto 8600 /uL (1500-7000); Neutrophils Percent Auto 65.2 % (50-75); Platelet Count 771 X10^3/uL (150-400); Red Blood Cell Count 3.82 X10^6/uL (4.0-5.2); Red Cell Distribution Width 21.1 % (11.6-14.8); White Blood Cell Count 13.1 X10^3/uL (4.5-11.0)
[2023-06-28 13:18] LABS: Alanine Aminotransferase 15 IU/L (<35); Albumin 3.8 g/dL (3.5-5.0); Albumin Globulin Ratio 0.8 (1.0-2.8); Alkaline Phosphatase 96 U/L (38-126); Aspartate Aminotransferase 16 IU/L (14-36); BUN Creatinine Ratio 21.3 (6-22); Bilirubin Total 0.4 mg/dL (0.2-1.3); Blood Urea Nitrogen 13 mg/dL (7-17); Calcium 9.2 mg/dL (8.4-10.2); Carbon Dioxide 25 mmol/L (22-32); Chloride 103 mmol/L (98-107); Estimated Glomerular Filt Rate > 60 mL/min (>60); Globulin 4.6 g/dL (1.7-4.1); Glucose 102 mg/dL (70-100); HEMOLYSIS < 15 (0-50); Lipase 44 U/L (23-300); Potassium 3.4 mmol/L (3.4-5.1); Sodium 138 mmol/L (137-145); Total Protein 8.4 g/dL (6.3-8.2)
[2023-06-28 13:45] LABS: Anisocytosis 1+; Rouleaux 2+
[2023-06-28 13:47] LABS: Appearance Urine UA SL CLOUDY; Bilirubin Urine UA 1+ (NEGATIVE); Color Urine UA YELLOW; Glucose Urine UA NEGATIVE (Negative); Ketones Urine UA TRACE (NEGATIVE); Leukocyte Esterase Urine UA NEGATIVE (NEGATIVE); Nitrite Urine UA NEGATIVE (Negative); Occult Blood Urine UA 3+ (Negative); Protein Urine UA 2+ (Negative); Specific Gravity Urine UA >=1.030 (1.000-1.035)
[2023-06-28 13:48] LABS: Pregnancy Test Urine Negative (Negative)
[2023-06-28] MEDS: ONDANSETRON 4 MG/2 ML INJ IV (13:48)
[2023-06-28] MEDS: MORPHINE 4 MG/ML INJ IV ×2 (13:49→16:32)
[2023-06-28 14:08] LABS: RBC Urine 1-5/HPF (0-5/HPF); Urine Volume Low Vol <10mL (spun)
[2023-06-28 14:09] LABS: Bacteria Urine Few (2-10); Calcium Oxalate Crystals Urine Moderate; Culture Indicated Urine Cult Not Indicated; Squamous Epithelial Cell Urine 10-30 /HPF (0-5/HPF); WBC Urine 1-5/HPF (0-5/HPF)
[2023-06-28] MEDS: SODIUM CHLORIDE 0.9% 1,000 ML 1000 ML IV (14:18)
--- NOTE | 2023-06-28 14:44 | ED.ABDPAIN ---
HPI - Abdominal Pain General Chief Complaint: Abdominal Pain Stated Complaint: abdominal pain Time Seen by Provider: 06/28/23 14:41 Source: patient Mode of arrival: Ambulatory Limitations: no limitations History of Present Illness HPI narrative: 28-year-old female with history of psoriatic arthritis on folic acid, methotrexate, Stelara, hydrochloroquine and omeprazole. Patient presents with complaint of right flank pain that she woke up with this morning. She states sudden a sat radiates towards the front. She states she felt clammy when it started. She had nausea and vomiting this morning. She had bowel movements which she describes as normal with no black or bloody stools. She states no dysuria, urgency or frequency. No vaginal bleeding. She did have her control removed several months ago and has had some intermittent periods irregularly. Patient states she has known anemia, she has had blood transfusions in the past they believe it is secondary to her psoriatic arthritis. She states she has had bilateral hip replacement several months ago for her psoriatic arthritis. Denies other surgeries. No known drug allergies but states that they tell her to avoid NSAIDs secondary to her GI issues. No tobacco, occasional alcohol, some marijuana but no recreational drugs. Related Data Home Medications Medication Instructions Recorded Confirmed cyclobenzaprine 10 mg tablet 10 mg PO BEDTIME 09/05/21 09/05/21 Previous Rx's Medication Instructions Recorded ibuprofen 800 mg tablet 800 mg PO Q8H PRN pain #21 tabs 08/11/21 gabapentin 600 mg tablet,extended 600 mg PO QPM PRN sciatica #14 tabs 09/05/21 release 24 hr ibuprofen 800 mg tablet 800 mg PO Q8H PRN pain #30 tabs 09/05/21 lidocaine 5 % topical patch 1 patch topical DAILY PRN pain #15 09/05/21 (Lidoderm) ea methylprednisolone 4 mg tablets in See Rx Instructions PO PER PKG DIR 09/05/21 a dose pack (Medrol (Aj)) low back pain w/sciatica #21 ea tramadol 50 mg tablet 50 mg PO BID PRN pain #14 tabs 09/05/21 cyclobenzaprine 7.5 mg tablet 7.5 mg PO BEDTIME PRN muscle spasm 09/30/21 #60 tabs diclofenac sodium 1 % topical gel 2 g topical QID PRN pain #100 grams 09/30/21 (Voltaren Arthritis Pain) ibuprofen 800 mg tablet 800 mg PO Q8H PRN pain #60 tabs 09/30/21 oxycodone 5 mg tablet 5 mg PO QID PRN pain #10 tabs 06/28/23 tamsulosin 0.4 mg capsule (Flomax) 0.4 mg PO DAILY #7 caps 06/28/23 Allergies Allergy/AdvReac Type Severity Reaction Status Date / Time naproxen AdvReac Intermediate Gastrointestinal Verified 09/30/21 09:55 Upset Review of Systems Review of Systems ROS Unobtainable: All systems reviewed & are unremarkable except as noted in HPI and below Patient History Medical History Lumbosacral radiculopathy at L5 Lumbago with sciatica Social History Smoking Status: Never smoker Smoking Status: Never smoker alcohol intake frequency: 0-2 drinks per day Substance Use Type: marijuana Exam Narrative Exam Narrative: GENERAL: Alert and oriented x three, mild distress. HEENT: Head normocephalic, atraumatic, EOMI, pupils reactive, face symmetric, moist mucous membranes NECK: Supple, full range of motion CARDIOVASCULAR: Regular rate and rhythm without murmurs, rubs or gallops. RESPIRATORY: Breath sounds equal bilaterally, no wheezes rales or rhonchi. ABDOMEN: Soft, nontender. Normoactive bowel sounds all 4 quadrants. No guarding or rebound, rigidity, no mass : No CVA tenderness EXTREMITIES: Normal range of motion, no clubbing or edema. Neurovascularly intact NEUROLOGICAL: Cranial nerves II through XII grossly intact. Moving all extremities SKIN: Warm, dry, no petechiae, no rashes or lesions. Initial Vital Signs Initial Vital Signs: Vital Signs Temperature 97.9 F 06/28/23 12:40 Pulse Rate 85 06/28/23 12:40 Respiratory Rate 18 06/28/23 12:40 Blood Pressure 137/81 06/28/23 12:40 Pulse Oximetry 96 06/28/23 12:40 Oxygen Delivery Method Room Air 06/28/23 12:40 Course Orders Ordered: ED Orders 06/28/23 12:56 Complete Blood Count AUTO DIFF Stat Comprehensive Metabolic Panel Stat Lipase Stat 06/28/23 13:30 Ictotest Urine Stat Test Urine Stat Urinalysis and Microscopic Stat 06/28/23 15:06 CT kidney ureter bladder (KUB) Stat Discontinued Medications Sodium Chloride (Normal Saline 0.9%) 1,000 mls @ 1,000 mls/hr IV BOLUS ONE Stop: 06/28/23 15:11 Last Infusion: 06/28/23 15:25 Dose: Infused Documented By: Admin: 06/28/23 14:18 Dose: 1,000 mls/hr Documented By: SB Morphine Sulfate (Morphine 4 Mg/Ml Inj) 4 mg IV NOW ONE Stop: 06/28/23 13:43 Last Admin: 06/28/23 13:49 Dose: 4 mg Documented By: SB Morphine Sulfate (Morphine 4 Mg/Ml Inj) 4 mg IV NOW ONE Stop: 06/28/23 16:24 Last Admin: 06/28/23 16:32 Dose: 4 mg Documented By: AMV Ondansetron HCl (Ondansetron 4 Mg Odt) 4 mg PO NOW PRN PRN Reason: Nausea And Vomiting Ondansetron HCl (Ondansetron 4 Mg/2 Ml Inj) 4 mg IV NOW PRN PRN Reason: Nausea And Vomiting Last Admin: 06/28/23 13:48 Dose: 4 mg Documented By: CRISTHIAN Vital Signs Vital signs: Vital Signs - 8 hr 06/28/23 12:40 06/28/23 12:50 06/28/23 13:02 Temperature 97.9 F Pulse Rate 85 80 88 Respiratory Rate 18 Blood Pressure 137/81 Pulse Oximetry 96 98 98 Oxygen Delivery Method Room Air 06/28/23 13:03 06/28/23 13:03 06/28/23 13:15 Temperature Pulse Rate 72 73 Respiratory Rate Blood Pressure 139/64 Pulse Oximetry 98 98 Oxygen Delivery Method 06/28/23 13:30 06/28/23 13:31 06/28/23 13:31 Temperature Pulse Rate 77 69 Respiratory Rate Blood Pressure 131/84 Pulse Oximetry 98 98 Oxygen Delivery Method Room Air 06/28/23 13:45 06/28/23 13:45 06/28/23 14:00 Temperature Pulse Rate 90 Respiratory Rate 30 H Blood Pressure 124/87 126/87 Pulse Oximetry 98 Oxygen Delivery Method 06/28/23 14:00 06/28/23 14:15 06/28/23 14:15 Temperature Pulse Rate 63 71 Respiratory Rate 33 H 24 Blood Pressure 122/64 Pulse Oximetry 99 96 Oxygen Delivery Method 06/28/23 14:30 06/28/23 14:30 06/28/23 14:45 Temperature Pulse Rate 66 70 Respiratory Rate 21 Blood Pressure 124/69 Pulse Oximetry 98 99 Oxygen Delivery Method 06/28/23 14:46 06/28/23 14:46 06/28/23 15:00 Temperature Pulse Rate 78 Respiratory Rate 22 Blood Pressure 133/99 H 131/69 Pulse Oximetry 98 Oxygen Delivery Method 06/28/23 15:00 06/28/23 15:20 06/28/23 15:20 Temperature Pulse Rate 70 82 Respiratory Rate 24 Blood Pressure 128/69 Pulse Oximetry 99 96 Oxygen Delivery Method Room Air 06/28/23 15:30 06/28/23 15:30 06/28/23 15:45 Temperature Pulse Rate 70 Respiratory Rate 24 Blood Pressure 127/58 L 137/62 Pulse Oximetry 98 Oxygen Delivery Method 06/28/23 15:45 06/28/23 16:00 06/28/23 16:00 Temperature Pulse Rate 57 L 67 Respiratory Rate 18 17 Blood Pressure 129/60 Pulse Oximetry 100 96 Oxygen Delivery Method 06/28/23 16:15 06/28/23 16:15 06/28/23 16:30 Temperature Pulse Rate 63 67 Respiratory Rate 17 17 Blood Pressure 127/60 Pulse Oximetry 97 Oxygen Delivery Method 06/28/23 16:31 06/28/23 16:31 Temperature Pulse Rate 76 Respiratory Rate 18 Blood Pressure 131/72 Pulse Oximetry Oxygen Delivery Method MDM - Abdominal Pain Lab Data 06/28/23 12:56 06/28/23 12:56 Labs: Lab Results 06/28/23 06/28/23 Range/Units 12:56 13:30 WBC 13.1 H (4.5-11.0) X10^3/uL RBC 3.82 L (4.0-5.2) X10^6/uL Hgb 7.8 L (12.0-16.0) g/dL Hct 25.7 L (36-46) % MCV 67.2 L (80-100) fL MCH 20.4 L (26-34) PG MCHC 30.3 (30-36) % RDW 21.1 H (11.6-14.8) % Plt Count 771 H (150-400) X10^3/uL Neut % (Auto) 65.2 (50-75) % Lymph % (Auto) 23.8 L (25-40) % Pratt % (Auto) 8.3 (3-14) % Eos % (Auto) 1.4 L (2-4) % Baso % (Auto) 1.3 (0-2) % Neut # (Auto) 8600 H (0791-0089) /uL Lymph # (Auto) 3100 (9003-8440) /uL Pratt # (Auto) 1100 H (0-900) /uL Eos # (Auto) 200 (0-450) /uL Baso # (Auto) 200 H (0-100) /uL RBC Morphology Not Reportable Anisocytosis 1+ H Rouleaux 2+ H Sodium 138 (137-145) mmol/L Potassium 3.4 (3.4-5.1) mmol/L Chloride 103 (98-107) mmol/L Carbon Dioxide 25 (22-32) mmol/L BUN 13 (7-17) mg/dL Creatinine 0.61 (0.52-1.04) mg/dL Estimated GFR > 60 (>60) mL/min BUN/Creatinine Ratio 21.3 (6-22) Glucose 102 H (70-100) mg/dL Calcium 9.2 (8.4-10.2) mg/dL Total Bilirubin 0.4 (0.2-1.3) mg/dL AST 16 (14-36) IU/L ALT 15 (<35) IU/L Alkaline Phosphatase 96 (38-126) U/L Total Protein 8.4 H (6.3-8.2) g/dL Albumin 3.8 (3.5-5.0) g/dL Globulin 4.6 H (1.7-4.1) g/dL Albumin/Globulin Ratio 0.8 L (1.0-2.8) Lipase 44 (23-300) U/L Urine Color Yellow Urine Appearance Sl cloudy Urine pH 6.0 (4.5-8.0) Ur Specific Wayan >=1.030 H (1.000-1.035) Urine Protein 2+ H (Negative) Urine Glucose (UA) Negative (Negative) g/dL Urine Ketones Trace H (NEGATIVE) Urine Occult Blood 3+ H (Negative) Urine Nitrate Negative (Negative) Urine Bilirubin 1+ H (NEGATIVE) Ur Bilirubin Confirm TNP Urine Urobilinogen 1.0 (0.2) E.U./dL Ur Leukocyte Esterase Negative (NEGATIVE) Urine RBC 1-5/hpf D (0-5/HPF) Urine WBC 1-5/hpf (0-5/HPF) Ur Squamous Epith Cells 10-30 /hpf H D (0-5/HPF) Calcium Oxalate Crystal Moderate H Urine Bacteria Few (2-10) H (None) Ur Culture Indicated? Cult not indicated Vol Urine Centrifuged Low vol <10ml (spun) A Urine Test Negative (Negative) Imaging Data CT scan - abdomen/pelvis: Radiologist's Impression: [address] [address] [address] Scan Report Signed Patient: Naomi Salas MR#: [id number] : 1995 Acct:[id number] Age/Sex: 28 / F Date of Service: 06/28/23 Loc: ED Accession Number: [id number] Procedure: CT kidney ureter bladder (KUB) Ordering Provider: Fannie French D.O. PROCEDURE: CT KIDNEY URETER BLADDER (KUB) INDICATIONS: right flank/abd pain, hematuria TECHNIQUE: Axial sections were acquired from the lung bases to the pubic symphysis. Coronal and sagittal reformats were performed. For radiation dose reduction, the following was used: automated exposure control, adjustment of mA and/or kV according to patient size. COMPARISON: None. FINDINGS: Image quality: Limited by hip arthroplasty artifact. Lower Chest: No significant findings. URINARY: Right Kidney: Nonobstructing 2 mm calculus within the right interpolar kidney posteriorly. Mild right hydronephrosis. 2 mm calculus at the right ureteropelvic junction. Distal right ureter not seen secondary to metallic artifact. Right Ureter: No hydroureter. Left Kidney: No stones or hydronephrosis. Left Ureter: No hydroureter. Bladder: Not seen secondary to metallic artifact. ABDOMEN: Liver: No contour-deforming solid mass. Gallbladder: No radiopaque gallstones or wall thickening. Biliary ducts: No biliary dilation. Pancreas: No ductal dilation. Spleen: Size is within normal limits. Adrenal Glands: No adrenal nodules. Stomach and Bowel: Normal colonic caliber, without significant wall thickening. Normal appendix. Peritoneum: No abnormal intraperitoneal fluid. No free air. Ventral Wall: No hernia. Abdominal Nodes: No enlarged retroperitoneal or mesenteric lymph nodes. Vessels: Aorta and inferior vena cava are normal in size. PELVIS: Pelvic Organs: Unremarkable. Pelvic Nodes: Unremarkable. Miscellaneous: No inguinal hernias are seen. Bones: Bilateral hip arthroplasty artifact is present.. IMPRESSION: 1. Right ureteropelvic junction calculus associated with mild right hydronephrosis. 2. Nonobstructing right renal calculus. 3. Normal appendix. 4. Nonvisualization of the urinary bladder. Dictated by: Jada Martínez M.D. on 06/28/2023 at 15:45 Approved by: Jada Martínez M.D. on 06/28/2023 at 15:47 MDM Narrative Medical decision making narrative: 28-year-old female presents with complaint of right flank pain that wraps around to the front. Patient does have a history significant for psoriatic arthritis. Overall hemodynamically stable with no fevers. Patient has a white count of 13 hemoglobin 7.8 was 8.1 in September of 2021. Patient has microcytic anemia she does follow regularly with physicians. Platelets are 771. She states that she has had transfusions in the past but not regularly. Patient's electrolytes and renal function appropriate glucose is 102 LFTs are negative. Globulin elevated as well as total protein. Urine shows specific gravity of 1.030, protein 2+ trace ketones 3+ occult blood with 1+ bilirubin. Negative leukocyte esterase, negative nitrates. 10-30 squamous epithelial. Moderate calcium oxalate. Few bacteria. Patient had improvement of pain here with medication. She feels comfortable returning home. She does not tolerate NSAIDs well and has had GI bleeds in the past so will avoid these. Flomax, Tylenol for pain management referral to Urology. Discussed return precautions. Discharge Plan Departure Patient Disposition: Home Clinical Impression: Kidney stone on right side, Lumbosacral radiculopathy at L5 Instructions: DI for Kidney Stones Activity Restrictions/Additional Instructions: Please follow up with Urology if your symptoms are not improving over the next several days. You do have a kidney stone on the right size, it is proximally 2 mm which typically pass on their own without intervention. Take Flomax once daily until gone. You can take Zofran 1 tablet every 6 hours as needed. You may take Tylenol up to a 1000 mg every 6 hours as needed for pain. You may take oxycodone 1-2 tablets every 6 hours as needed for pain. This medication can make you sleepy do not drive, perform hazardous activities or make any major decisions while taking it. This medication will make you constipated please take a stool softener once to twice daily until stools are soft and regular. Prescription sent to [facility] in [place]. Please return for fevers, rapidly worsening abdominal back or flank pain, persistent vomiting, lightheadedness or passing out or other new or concerning changes. Prescriptions: New oxycodone 5 mg tablet 5 mg PO QID PRN (Reason: pain) Qty: 10 0RF tamsulosin [Flomax] 0.4 mg capsule 0.4 mg PO DAILY Qty: 7 0RF No Action cyclobenzaprine 10 mg tablet 10 mg PO BEDTIME tramadol 50 mg tablet 50 mg PO BID PRN (Reason: pain) Qty: 14 0RF lidocaine [Lidoderm] 5 % adhesive patch,medicated 1 patch topical DAILY PRN (Reason: pain) Qty: 15 0RF Rx Instructions: leave on most painful area for up to 12 hrs ibuprofen 800 mg tablet 800 mg PO Q8H PRN (Reason: pain) Qty: 30 0RF methylprednisolone [Medrol (Aj)] 4 mg tablets,dose pack See Rx Instructions PO PER PKG DIR Qty: 21 0RF Rx Instructions: PO PER PKG DIR gabapentin 600 mg tablet extended release 24 hr 600 mg PO QPM PRN (Reason: sciatica) Qty: 14 0RF cyclobenzaprine 7.5 mg tablet 7.5 mg PO BEDTIME PRN (Reason: muscle spasm) Qty: 60 0RF diclofenac sodium [Voltaren Arthritis Pain] 1 % gel 2 g topical QID PRN (Reason: pain) Qty: 100 0RF Rx Instructions: apply to single elbow, wrist or hand; for hand includes palm/fingers/back of hand ibuprofen 800 mg tablet 800 mg PO Q8H PRN (Reason: pain) Qty: 60 0RF ibuprofen 800 mg tablet 800 mg PO Q8H PRN (Reason: pain) Qty: 21 0RF Referrals: Miscellaneous,MD Vandana [Primary Care Provider] - Jose Alfredo Landa MD [Physician] - Stand Alone Forms: Patient Portal/API
--- NOTE | 2023-06-28 15:06 | DI.CT.S_ITS ---
PROCEDURE: CT KIDNEY URETER BLADDER (KUB) INDICATIONS: right flank/abd pain, hematuria TECHNIQUE: Axial sections were acquired from the lung bases to the pubic symphysis. Coronal and sagittal reformats were performed. For radiation dose reduction, the following was used: automated exposure control, adjustment of mA and/or kV according to patient size. COMPARISON: None. FINDINGS: Image quality: Limited by hip arthroplasty artifact. Lower Chest: No significant findings. URINARY: Right Kidney: Nonobstructing 2 mm calculus within the right interpolar kidney posteriorly. Mild right hydronephrosis. 2 mm calculus at the right ureteropelvic junction. Distal right ureter not seen secondary to metallic artifact. Right Ureter: No hydroureter. Left Kidney: No stones or hydronephrosis. Left Ureter: No hydroureter. Bladder: Not seen secondary to metallic artifact. ABDOMEN: Liver: No contour-deforming solid mass. Gallbladder: No radiopaque gallstones or wall thickening. Biliary ducts: No biliary dilation. Pancreas: No ductal dilation. Spleen: Size is within normal limits. Adrenal Glands: No adrenal nodules. Stomach and Bowel: Normal colonic caliber, without significant wall thickening. Normal appendix. Peritoneum: No abnormal intraperitoneal fluid. No free air. Ventral Wall: No hernia. Abdominal Nodes: No enlarged retroperitoneal or mesenteric lymph nodes. Vessels: Aorta and inferior vena cava are normal in size. PELVIS: Pelvic Organs: Unremarkable. Pelvic Nodes: Unremarkable. Miscellaneous: No inguinal hernias are seen. Bones: Bilateral hip arthroplasty artifact is present.. IMPRESSION: 1. Right ureteropelvic junction calculus associated with mild right hydronephrosis. 2. Nonobstructing right renal calculus. 3. Normal appendix. 4. Nonvisualization of the urinary bladder. Dictated by: Jada Martínez M.D. on 06/28/2023 at 15:45 Approved by: Jada Martínez M.D. on 06/28/2023 at 15:47
== END 2023-06-28 17:12 | disposition home or self-care (01) ==
PROVIDERS: Emergency Provider Emergency Medicine
DX: N20.0 Calculus of kidney (principal); M54.17 Radiculopathy, lumbosacral region
CPT/HCPCS: 74176; 80053; 81001; 81025; 83690; 85025; 96361; 96374; 96375; 96376; 99284; J2270; J2405